=== PATIENT | female | born 1960 | race Caucasian/White ===

== ENCOUNTER 2019-05-08 14:32 | Outpatient (REF) | payer MEDICAID, SELFPAY ==
[2019-05-08 20:42] LABS: Abs Immature Grans 0.01 k/cumm (0.0-0.09); Absolute Basophil Count 0.03 k/cumm (0.0-0.2); Absolute Eosinophil Count 0.13 k/cumm (0.0-0.7); Absolute Lymphocyte Count 1.66 k/cumm (1.2-3.4); Absolute Monocyte Count 0.69 k/cumm (0.11-0.7); Absolute Neutrophil Count 3.67 k/cumm (1.2-6.7); Basophils % 0.5; Eosinophils % 2.1; HCT 39.9 % (36.0-46.0); HGB 13.2 g/dL (12.0-15.5); Immature Grans % 0.2; Lymphocytes % 26.8; Mean Corp. HGB Concentration 33.1 g/dL (32.0-36.0); Mean Corpuscular Hemoglobin 31.5 pg (27.0-33.0); Mean Corpuscular Volume 95.2 fL (80-95); Mean Platelet Volume 10.6 fL (8.0-11.0); Monocytes % 11.1; Neutrophils % 59.3; Platelet Count 230 x1000/uL (130-400); RBC 4.19 m/cumm (4.00-5.20); RBC Distribution Width 12.6 % (11.7-14.6); White Blood Cell Count 6.19 k/cumm (4.4-10.8)
[2019-05-08 20:51] LABS: ALT 21 U/L (12-78); AST 26 U/L (15-37); Albumin 4.1 g/dL (3.4-5.0); Alkaline Phosphatase 94 U/L (46-116); Anion Gap 8.6 mmol/L (3-11); BUN 9 mg/dL (7-18); Bilirubin, Total 0.4 mg/dL (0.2-1.0); CO2 30.4 mmol/L (21.0-32.0); CREATININE 0.67 mg/dL (0.55-1.02); Calcium 9.4 mg/dL (8.5-10.1); Chloride 103 mmol/L (98-107); Glucose 79 mg/dL (70-100); Potassium 4.3 mmol/L (3.5-5.1); Sodium 142 mmol/L (136-145)
[2019-05-09 09:25] LABS: NT-proBNP 200 pg/mL; TSH 3.37 uIU/mL (0.36-3.74)
== END 2019-05-08 14:52 ==
LOC: NCHCN 14:32
PROVIDERS: PCP Nurse Practitioner Family; Visit Provider Registered Nurse
DX: R06.02 Shortness of breath (principal); R53.83 Other fatigue; J44.9 Chronic obstructive pulmonary disease, unspecified; F41.8 Other specified anxiety disorders
CPT/HCPCS: 80053; 83880; 84443; 85025

== ENCOUNTER 2020-04-09 10:13 | Outpatient (REF) | payer MEDICAID, SELFPAY ==
[2020-04-09 21:02] LABS: Vitamin B12 1594 pg/mL (193-986)
[2020-04-11 19:35] LABS: ALT 39 U/L (14-59); AST 43 U/L (15-37); Albumin 4.4 g/dL (3.4-5.0); Alkaline Phosphatase 95 U/L (46-116); Anion Gap 9.3 mmol/L (3-11); BUN 14 mg/dL (7-18); Bilirubin, Total 0.2 mg/dL (0.2-1.0); CO2 28.7 mmol/L (21.0-32.0); CREATININE 0.65 mg/dL (0.55-1.02); Calcium 9.3 mg/dL (8.5-10.1); Chloride 101 mmol/L (98-107); Glucose 70 mg/dL (74-106); Sodium 139 mmol/L (136-145)
== END 2020-04-09 10:33 ==
LOC: NCHCN 10:13
PROVIDERS: PCP Nurse Practitioner Family; Visit Provider Nurse Practitioner Family
DX: F43.10 Post-traumatic stress disorder, unspecified (principal); F34.0 Cyclothymic disorder; F12.20 Cannabis dependence, uncomplicated; F15.20 Other stimulant dependence, uncomplicated; R45.4 Irritability and anger; Z51.81 Encounter for therapeutic drug level monitoring
CPT/HCPCS: 80053; 80178; 82607

== ENCOUNTER 2020-04-16 14:14 | Outpatient (REF) | payer MEDICAID, SELFPAY ==
[2020-04-16 20:38] LABS: Lithium 0.85 mmol/L (0.60-1.20)
== END 2020-04-16 14:34 ==
LOC: NCHCN 14:14
PROVIDERS: PCP Nurse Practitioner Family; Visit Provider Nurse Practitioner Family
DX: F34.0 Cyclothymic disorder (principal); R45.851 Suicidal ideations
CPT/HCPCS: 80178

== ENCOUNTER 2020-05-05 10:18 | Outpatient (REF) | payer MEDICAID, SELFPAY ==
[2020-05-05 20:41] LABS: Lithium 0.74 mmol/L (0.60-1.20)
== END 2020-05-05 10:38 ==
LOC: NCHCN 10:18
PROVIDERS: PCP Nurse Practitioner Family; Visit Provider Nurse Practitioner Family
DX: F43.10 Post-traumatic stress disorder, unspecified (principal); F41.8 Other specified anxiety disorders; Z51.81 Encounter for therapeutic drug level monitoring
CPT/HCPCS: 80178

== ENCOUNTER 2020-08-29 15:08 | Outpatient (REF) | payer MEDICAID, SELFPAY ==
[2020-09-02 08:18] LABS: COVID-19 RT-PCR UVMMC Result Positive (Negative)
== END 2020-08-29 15:28 ==
LOC: NCHCN 15:08
PROVIDERS: PCP Registered Nurse; Visit Provider Registered Nurse
DX: Z20.828 Contact with and (suspected) exposure to other viral communicable diseases (principal)
CPT/HCPCS: U0003

== ENCOUNTER 2021-01-23 15:04 | Outpatient (REF) | payer MEDICAID, SELFPAY ==
[2021-01-23 13:34] LABS: Abs Immature Grans 0.01 10^3/uL (0.0-0.06); Absolute Basophil Count 0.06 10^3/uL (0.0-0.2); Absolute Eosinophil Count 0.24 10^3/uL (0.0-0.7); Absolute Lymphocyte Count 1.81 10^3/uL (1.2-3.4); Absolute Monocyte Count 0.29 10^3/uL (0.1-0.8); Basophils % 1.1; Eosinophils % 4.4; HCT 40.3 % (36.0-46.0); HGB 12.9 g/dL (11.2-15.7); Immature Grans % 0.2; Lymphocytes % 33.5; MCH 31.7 pg (27.0-33.0); MPV 9.9 fL (8.0-11.0); Monocytes % 5.4; Neutrophils % 55.4; Nucleated RBC 0 %; Platelet Count 236 10^3/uL (130-400); RBC 4.07 10^6/uL (3.93-5.22); RDW 12.5 % (11.7-14.6); RDW-SD 45.3 fL; WBC 5.41 10^3/uL (4.4-10.8)
[2021-01-23 14:12] LABS: ALT 27 U/L (14-59); AST 31 U/L (15-37); Alkaline Phosphatase 69 U/L (46-116); Anion Gap 3.6 mmol/L (3-11); BUN 14 mg/dL (7-18); Bilirubin, Total 0.4 mg/dL (0.2-1.0); CO2 32.4 mmol/L (21.0-32.0); CREATININE 0.7 mg/dL (0.55-1.02); Calcium 9.1 mg/dL (8.5-10.1); Calculated LDL 79 mg/dL (<100); Chloride 106 mmol/L (98-107); Cholesterol 173 mg/dL (<200); Glucose 70 mg/dL (74-106); HDL Cholesterol 81 mg/dL (40-60); Potassium 4.1 mmol/L (3.5-5.1); Sodium 142 mmol/L (136-145); TSH (W/Ref FT4) 2.72 uIU/mL (0.36-3.74); Total Protein 6.4 g/dL (6.4-8.2); Triglyceride 67 mg/dL (<150); Vitamin B12 1539 pg/mL (193-986)
== END 2021-01-23 15:05 | disposition home or self-care (01) ==
LOC: NCHCN 15:04
PROVIDERS: PCP Registered Nurse; Visit Provider Nurse Practitioner Family
DX: F50.01 Anorexia nervosa, restricting type (principal); F34.0 Cyclothymic disorder; F43.12 Post-traumatic stress disorder, chronic; R63.4 Abnormal weight loss; Z51.81 Encounter for therapeutic drug level monitoring; Z79.899 Other long term (current) drug therapy
CPT/HCPCS: 80053; 80061; 80178; 82607; 84443; 85025

== ENCOUNTER 2021-05-28 14:49 | Outpatient (REF) | payer MEDICAID, SELFPAY ==
[2021-05-28 21:02] LABS: Lithium 0.6 mmol/l (0.6-1.2)
[2021-05-28 21:23] LABS: Albumin 4.2 g/dL (3.4-5.0); Anion Gap 6.8 mmol/L (3-11); BUN 18 mg/dL (7-18); CO2 29.2 mmol/L (21.0-32.0); CREATININE 0.6 mg/dL (0.55-1.02); Calcium 9.3 mg/dL (8.5-10.1); Chloride 104 mmol/L (98-107); FREE T4 0.78 ng/dL (0.76-1.46); Glucose 78 mg/dL (74-106); PHOSPHORUS 4.1 mg/dL (2.6-4.7); Potassium 4.1 mmol/L (3.5-5.1); Sodium 140 mmol/L (136-145); TSH 2.71 uIU/mL (0.36-3.74)
[2021-05-28 22:04] LABS: Vitamin B12 1761 pg/mL (193-986)
[2021-05-29 17:18] LABS: T3,Free 2.9 pg/mL (2.8-5.3)
== END 2021-05-28 14:50 | disposition home or self-care (01) ==
LOC: LBN 14:49
PROVIDERS: PCP Registered Nurse; Visit Provider Nurse Practitioner Family
DX: F34.0 Cyclothymic disorder (principal); R79.9 Abnormal finding of blood chemistry, unspecified; F10.21 Alcohol dependence, in remission; F15.99 Other stimulant use, unspecified with unspecified stimulant-induced disorder; Z79.899 Other long term (current) drug therapy
CPT/HCPCS: 80069; 80178; 82607; 84439; 84443; 84481

== ENCOUNTER 2021-07-09 20:39 | Outpatient (REF) | payer MEDICAID, SELFPAY ==
[2021-07-09 21:03] LABS: Abs Immature Grans 0.02 10^3/uL (0.0-0.06); Absolute Basophil Count 0.05 10^3/uL (0.0-0.2); Absolute Eosinophil Count 0.29 10^3/uL (0.0-0.7); Absolute Lymphocyte Count 2.09 10^3/uL (1.2-3.4); Absolute Monocyte Count 0.38 10^3/uL (0.1-0.8); Absolute Neutrophil Count 4.18 10^3/uL (1.2-6.7); Basophils % 0.7; Eosinophils % 4.1; HCT 37.1 % (36.0-46.0); HGB 11.7 g/dL (11.2-15.7); Immature Grans % 0.3; Lymphocytes % 29.8; MCH 31.9 pg (27.0-33.0); MCHC 31.5 % (32.0-36.0); MCV 101.1 fL (80-95); MPV 9.8 fL (8.0-11.0); Monocytes % 5.4; Neutrophils % 59.7; Nucleated RBC 0 %; Platelet Count 295 10^3/uL (130-400); RBC 3.67 10^6/uL (3.93-5.22); RDW 12.6 % (11.7-14.6); RDW-SD 47.4 fL; WBC 7.01 10^3/uL (4.4-10.8)
[2021-07-09 21:28] LABS: C-Reactive Protein < 0.05 mg/dL (0.0-0.3)
[2021-07-13 10:16] LABS: HIV-1/2 Ag & Ab Screen Negative (Negative)
== END 2021-07-09 20:40 | disposition home or self-care (01) ==
LOC: NCHCN 20:39
PROVIDERS: PCP Registered Nurse; Visit Provider Registered Nurse
DX: R61 Generalized hyperhidrosis (principal)
CPT/HCPCS: 87389; 85025; 86140

== ENCOUNTER 2021-08-27 17:13 | Outpatient (REF) | payer MEDICAID, SELFPAY ==
[2021-08-27 22:34] LABS: HCT 37.9 % (36.0-46.0); HGB 11.8 g/dL (11.2-15.7); MCH 31.1 pg (27.0-33.0); MCHC 31.1 % (32.0-36.0); MCV 99.7 fL (80-95); MPV 10.1 fL (8.0-11.0); Platelet Count 268 10^3/uL (130-400); WBC 6.01 10^3/uL (4.4-10.8)
== END 2021-08-27 17:14 | disposition home or self-care (01) ==
LOC: NCHCN 17:13
PROVIDERS: PCP Registered Nurse; Visit Provider Registered Nurse
DX: D64.9 Anemia, unspecified (principal)
CPT/HCPCS: 85027

== ENCOUNTER 2022-02-11 12:44 | Outpatient (REF) | payer MEDICAID, SELFPAY ==
[2022-02-11 15:22] LABS: Abs Immature Grans 0.01 10^3/uL (0.0-0.06); Absolute Basophil Count 0.07 10^3/uL (0.0-0.2); Absolute Eosinophil Count 0.31 10^3/uL (0.0-0.7); Absolute Lymphocyte Count 1.72 10^3/uL (1.2-3.4); Absolute Monocyte Count 0.39 10^3/uL (0.1-0.8); Eosinophils % 4.5; HCT 36.1 % (36.0-46.0); HGB 11.4 g/dL (11.2-15.7); Immature Grans % 0.1; Lymphocytes % 24.9; MCH 31.2 pg (27.0-33.0); MCHC 31.6 % (32.0-36.0); MCV 99 fL (80-95); MPV 10.2 fL (8.0-11.0); Monocytes % 5.7; Neutrophils % 63.8; Platelet Count 262 10^3/uL (130-400); RBC 3.65 10^6/uL (3.93-5.22); RDW-SD 46.8 fL
[2022-02-11 15:36] LABS: Albumin 4.1 g/dL (3.4-5.0); Anion Gap 5.2 mmol/L (3-11); BUN 12 mg/dL (7-18); CO2 28.8 mmol/L (21.0-32.0); CREATININE 0.6 mg/dL (0.55-1.02); Calcium 8.9 mg/dL (8.5-10.1); Chloride 105 mmol/L (98-107); FREE T4 0.72 ng/dL (0.76-1.46); Glucose 66 mg/dL (74-106); PHOSPHORUS 3.9 mg/dL (2.6-4.7); Potassium 3.5 mmol/L (3.5-5.1); Sodium 139 mmol/L (136-145); TSH 2.05 uIU/mL (0.36-3.74)
[2022-02-11 16:01] LABS: Lithium 0.6 mmol/l (0.6-1.2)
[2022-02-11 16:46] LABS: Vitamin B12 1689 pg/mL (193-986)
[2022-02-11 22:33] LABS: T3,Free 3.2 pg/mL (2.8-5.3)
== END 2022-02-11 12:45 | disposition home or self-care (01) ==
LOC: LBN 12:44
PROVIDERS: PCP Registered Nurse; Visit Provider Nurse Practitioner Family
DX: F34.0 Cyclothymic disorder (principal); F17.209 Nicotine dependence, unspecified, with unspecified nicotine-induced disorders; F43.12 Post-traumatic stress disorder, chronic; R45.4 Irritability and anger; R79.89 Other specified abnormal findings of blood chemistry; R71.8 Other abnormality of red blood cells; Z79.899 Other long term (current) drug therapy
CPT/HCPCS: 80069; 80178; 82607; 84439; 84443; 84481; 85025

== ENCOUNTER 2022-12-16 13:42 | Outpatient (REF) | payer MEDICAID, SELFPAY ==
[2022-12-16 15:28] LABS: Abs Immature Grans 0.01 10^3/uL (0.0-0.06); Absolute Basophil Count 0.06 10^3/uL (0.0-0.2); Absolute Eosinophil Count 0.22 10^3/uL (0.0-0.7); Absolute Lymphocyte Count 1.55 10^3/uL (1.2-3.4); Absolute Monocyte Count 0.36 10^3/uL (0.1-0.8); Absolute Neutrophil Count 1.99 10^3/uL (1.2-6.7); Basophils % 1.4; Eosinophils % 5.3; HCT 37.7 % (36.0-46.0); Immature Grans % 0.2; MCH 30.2 pg (27.0-33.0); MCHC 31.8 % (32.0-36.0); MCV 95 fL (80-95); MPV 10.3 fL (8.0-11.0); Monocytes % 8.6; Neutrophils % 47.5; Platelet Count 228 10^3/uL (130-400); RBC 3.97 10^6/uL (3.93-5.22); RDW 12.5 % (11.7-14.6); RDW-SD 43.7 fL; WBC 4.19 10^3/uL (4.4-10.8)
[2022-12-16 15:45] LABS: ALT 32 U/L (14-59); AST 42 U/L (15-37); Albumin 3.9 g/dL (3.4-5.0); Alkaline Phosphatase 78 U/L (46-116); Anion Gap 3.2 mmol/L (3-11); BUN 14 mg/dL (7-18); Bilirubin, Total 0.6 mg/dL (0.2-1.0); CO2 31.8 mmol/L (21.0-32.0); CREATININE 0.7 mg/dL (0.55-1.02); Calcium 9.2 mg/dL (8.5-10.1); Chloride 107 mmol/L (98-107); Estimated GFR 98.95 (mL/min/1.73m2); FREE T4 0.74 ng/dL (0.76-1.46); Glucose 84 mg/dL (74-106); Magnesium 2.1 mg/dL (1.8-2.4); PHOSPHORUS 4.2 mg/dL (2.6-4.7); Potassium 4.3 mmol/L (3.5-5.1); Sodium 142 mmol/L (136-145); TSH 2.59 uIU/mL (0.36-3.74); Total Protein 6.7 g/dL (6.4-8.2)
[2022-12-16 19:10] LABS: Vitamin B12 1883 pg/mL (193-986)
== END 2022-12-16 13:43 | disposition home or self-care (01) ==
LOC: LBN 13:42
PROVIDERS: PCP Registered Nurse; Visit Provider Nurse Practitioner Family
DX: F34.0 Cyclothymic disorder (principal); F43.12 Post-traumatic stress disorder, chronic; F17.299 Nicotine dependence, other tobacco product, with unspecified nicotine-induced disorders; R45.4 Irritability and anger; R53.83 Other fatigue; R53.81 Other malaise
CPT/HCPCS: 80053; 82607; 83735; 84100; 84439; 84443; 85025

== ENCOUNTER 2023-01-06 14:58 | Outpatient (REF) | payer MEDICAID, SELFPAY ==
[2023-01-06 14:40] LABS: ESR 3 mm/hr (0-30)
[2023-01-06 14:51] LABS: Lithium 0.4 mmol/l (0.6-1.2)
[2023-01-06 21:54] LABS: Rheumatoid Factor 12.4 IU/mL (<12.0)
[2023-01-07 09:11] LABS: Cyclic Citrullinated Peptide <2.5 U/mL (<5.0)
== END 2023-01-06 14:59 | disposition home or self-care (01) ==
LOC: NCHCN 14:58
PROVIDERS: PCP Registered Nurse; Visit Provider Registered Nurse
DX: M25.59 Pain in other specified joint (principal); F34.0 Cyclothymic disorder; F43.12 Post-traumatic stress disorder, chronic; F17.290 Nicotine dependence, other tobacco product, uncomplicated; R45.4 Irritability and anger; Z51.81 Encounter for therapeutic drug level monitoring; Z79.899 Other long term (current) drug therapy
CPT/HCPCS: 85652; 86200; 80178; 86431

== ENCOUNTER 2023-12-27 15:12 | Outpatient (REF) | payer MEDICAID, SELFPAY ==
[2023-12-27 20:51] LABS: Abs Immature Grans 0.04 10^3/uL (0.0-0.06); Absolute Basophil Count 0.06 10^3/uL (0.0-0.2); Absolute Eosinophil Count 0.13 10^3/uL (0.0-0.7); Absolute Lymphocyte Count 1.43 10^3/uL (1.2-3.4); Absolute Monocyte Count 0.45 10^3/uL (0.1-0.8); Absolute Neutrophil Count 3.08 10^3/uL (1.2-6.7); Basophils % 1.2; Eosinophils % 2.5; HCT 40.4 % (36.0-46.0); HGB 13.5 g/dL (11.2-15.7); Immature Grans % 0.8; Lymphocytes % 27.6; MCH 32.8 pg (27.0-33.0); MCHC 33.4 % (32.0-36.0); MCV 98 fL (80-95); Monocytes % 8.7; Neutrophils % 59.2; Platelet Count 227 10^3/uL (130-400); RBC 4.11 10^6/uL (3.93-5.22); RDW 12.3 % (11.7-14.6); RDW-SD 44.7 fL; WBC 5.19 10^3/uL (4.4-10.8)
[2023-12-27 21:08] LABS: ALT 27 U/L (14-59); AST 28 U/L (15-37); Albumin 3.3 g/dL (3.4-5.0); Alkaline Phosphatase 131 U/L (46-116); Anion Gap 9.9 mmol/L (3-11); BUN 11 mg/dL (7-18); Bilirubin, Total 0.2 mg/dL (0.2-1.0); CO2 28.1 mmol/L (21.0-32.0); CREATININE 0.6 mg/dL (0.55-1.02); Calcium 8.7 mg/dL (8.5-10.1); Chloride 106 mmol/L (98-107); Estimated GFR 102.06 (mL/min/1.73m2); Glucose 90 mg/dL (74-106); Lipase 35 U/L (16-77); Sodium 144 mmol/L (136-145); Total Protein 6.5 g/dL (6.4-8.2)
[2023-12-28 13:33] LABS: Folate 12.6 ng/mL (8.6-20.0); Vitamin B12 502 pg/mL (193-986)
== END 2023-12-27 15:13 | disposition home or self-care (01) ==
LOC: NCHCN 15:12
PROVIDERS: PCP Registered Nurse; Visit Provider Family Medicine
DX: D75.89 Other specified diseases of blood and blood-forming organs (principal); R11.10 Vomiting, unspecified; R74.8 Abnormal levels of other serum enzymes; Z79.899 Other long term (current) drug therapy
CPT/HCPCS: 80053; 83690; 82607; 82746; 85025

== ENCOUNTER 2024-03-13 16:00 | Outpatient (REF) | payer MEDICAID, SELFPAY ==
[2024-03-13 15:58] LABS: Abs Immature Grans 0.01 10^3/uL (0.0-0.06); Absolute Basophil Count 0.03 10^3/uL (0.0-0.2); Absolute Eosinophil Count 0.09 10^3/uL (0.0-0.7); Absolute Lymphocyte Count 1.08 10^3/uL (1.2-3.4); Absolute Monocyte Count 0.43 10^3/uL (0.1-0.8); Absolute Neutrophil Count 1.95 10^3/uL (1.2-6.7); Basophils % 0.8 %; Eosinophils % 2.5 %; HCT 40.5 % (36.0-46.0); HGB 13.2 g/dL (11.2-15.7); Immature Grans % 0.3 %; Lymphocytes % 30.1 %; MCH 33.4 pg (27.0-33.0); MCHC 32.6 % (32.0-36.0); MCV 103 fL (80-95); MPV 10.3 fL (8.0-11.0); Neutrophils % 54.3 %; Platelet Count 210 10^3/uL (130-400); RBC 3.95 10^6/uL (3.93-5.22); RDW 13.1 % (11.7-14.6); RDW-SD 49.9 fL; WBC 3.59 10^3/uL (4.4-10.8)
[2024-03-13 16:19] LABS: ALT 27 U/L (14-59); AST 34 U/L (15-37); Albumin 3.7 g/dL (3.4-5.0); Alkaline Phosphatase 72 U/L (46-116); Anion Gap 6.9 mmol/L (3-11); BUN 14 mg/dL (7-18); Bilirubin, Total 0.3 mg/dL (0.2-1.0); CO2 29.1 mmol/L (21.0-32.0); CREATININE 0.6 mg/dL (0.55-1.02); Calcium 8.8 mg/dL (8.5-10.1); Chloride 106 mmol/L (98-107); Estimated GFR 102.06 (mL/min/1.73m2); FREE T4 0.71 ng/dL (0.76-1.46); Glucose 81 mg/dL (74-106); Magnesium 1.9 mg/dL (1.8-2.4); PHOSPHORUS 4.4 mg/dL (2.6-4.7); Potassium 3.8 mmol/L (3.5-5.1); Sodium 142 mmol/L (136-145); TSH 1.38 uIU/Ml (0.36-3.74); Total Protein 6.4 g/dL (6.4-8.2)
[2024-03-13 17:06] LABS: Vitamin B12 1309 pg/mL (193-986)
== END 2024-03-13 16:01 | disposition home or self-care (01) ==
LOC: LBN 16:00
PROVIDERS: Nurse Practitioner Family; PCP Registered Nurse; Visit Provider Family Medicine
DX: F34.0 Cyclothymic disorder (principal); F10.120 Alcohol abuse with intoxication, uncomplicated; F43.12 Post-traumatic stress disorder, chronic; Z79.899 Other long term (current) drug therapy
CPT/HCPCS: 80053; 82607; 83735; 84100; 84439; 84443; 85025

== ENCOUNTER 2024-05-01 19:03 | Outpatient (REF) | payer MEDICAID, SELFPAY ==
[2024-05-01 21:37] LABS: Abs Immature Grans 0.02 10^3/uL (0.0-0.06); Absolute Basophil Count 0.06 10^3/uL (0.0-0.2); Absolute Eosinophil Count 0.18 10^3/uL (0.0-0.7); Absolute Monocyte Count 0.49 10^3/uL (0.1-0.8); Absolute Neutrophil Count 5.58 10^3/uL (1.2-6.7); Basophils % 0.7 %; Eosinophils % 2.2 %; HCT 41.4 % (36.0-46.0); HGB 13.8 g/dL (11.2-15.7); Immature Grans % 0.2 %; Lymphocytes % 21.2 %; MCH 32.8 pg (27.0-33.0); MCHC 33.3 % (32.0-36.0); MCV 98 fL (80-95); MPV 10.2 fL (8.0-11.0); Monocytes % 6.1 %; Neutrophils % 69.6 %; Platelet Count 207 10^3/uL (130-400); RBC 4.21 10^6/uL (3.93-5.22); RDW 13.4 % (11.7-14.6); RDW-SD 48.1 fL; WBC 8.03 10^3/uL (4.4-10.8)
[2024-05-01 22:05] LABS: ALT 29 U/L (14-59); AST 43 U/L (15-37); Albumin 3.9 g/dL (3.4-5.0); Alkaline Phosphatase 140 U/L (46-116); Anion Gap 6.7 mmol/L (3-11); BUN 12 mg/dL (7-18); Bilirubin, Total 0.24 mg/dL (0.2-1.0); CO2 30.3 mmol/L (21.0-32.0); CREATININE 0.7 mg/dL (0.55-1.02); Calcium 9.1 mg/dL (8.5-10.1); Chloride 103 mmol/L (98-107); Estimated GFR 98.34 (mL/min/1.73m2); Glucose 98 mg/dL (74-106); Sodium 140 mmol/L (136-145); Total Protein 6.8 g/dL (6.4-8.2)
== END 2024-05-01 19:04 | disposition home or self-care (01) ==
LOC: NCHCN 19:03
PROVIDERS: PCP Registered Nurse; Visit Provider Family Medicine
DX: D75.89 Other specified diseases of blood and blood-forming organs (principal); R79.89 Other specified abnormal findings of blood chemistry; Z01.818 Encounter for other preprocedural examination
CPT/HCPCS: 80053; 85025

== ENCOUNTER 2025-01-23 10:30 | Outpatient (REF) | payer MEDICAID, SELFPAY ==
[2025-01-23 16:32] LABS: ALT 49 U/L (14-59); AST 69 U/L (15-37); Albumin 3.5 g/dL (3.4-5.0); Alkaline Phosphatase 132 U/L (46-116); Anion Gap 8.6 mmol/L (3-11); BUN 16 mg/dL (7-18); Bilirubin, Total 0.4 mg/dL (0.2-1.0); CO2 28.4 mmol/L (21.0-32.0); CREATININE 0.7 mg/dL (0.55-1.02); Calcium 8.8 mg/dL (8.5-10.1); Chloride 104 mmol/L (98-107); Estimated GFR 97.72 (mL/min/1.73m2); Glucose 69 mg/dL (74-106); Potassium 3.9 mmol/L (3.5-5.1); Sodium 141 mmol/L (136-145); Total Protein 6.5 g/dL (6.4-8.2)
== END 2025-01-23 10:31 | disposition home or self-care (01) ==
LOC: NCHCN 10:30
PROVIDERS: PCP Registered Nurse; Visit Provider Family Medicine
DX: F10.10 Alcohol abuse, uncomplicated (principal)
CPT/HCPCS: 80053

== ENCOUNTER 2025-01-28 12:56 | Outpatient (REF) | payer MEDICAID, SELFPAY ==
[2025-01-28 15:13] LABS: ALT 38 U/L (14-59); AST 46 U/L (15-37); Albumin 3.7 g/dL (3.4-5.0); Alkaline Phosphatase 114 U/L (46-116); Bilirubin, Direct 0.1 mg/dL (0.0-0.2); Bilirubin, Total 0.3 mg/dL (0.2-1.0); Total Protein 6.6 g/dL (6.4-8.2)
== END 2025-01-28 12:57 | disposition home or self-care (01) ==
LOC: NCHCN 12:56
PROVIDERS: PCP Registered Nurse; Visit Provider Family Medicine
DX: F10.10 Alcohol abuse, uncomplicated (principal)
CPT/HCPCS: 80076

== ENCOUNTER 2025-03-14 11:48 | Outpatient (REF) | payer MEDICAID, SELFPAY | END 2025-03-14 11:49 | disposition home or self-care (01) | LOC: NCHCN 11:48 | PROVIDERS: PCP Registered Nurse; Visit Provider Family Medicine | DX: R35.0 Frequency of micturition (principal); R82.89 Other abnormal findings on cytological and histological examination of urine | CPT/HCPCS: 87086 ==

== ENCOUNTER 2025-04-29 16:02 | Outpatient (REF) | payer MEDICAID, SELFPAY ==
[2025-04-29 16:23] LABS: ALT 21 U/L (14-59); AST 31 U/L (15-37); Albumin 4.2 g/dL (3.4-5.0); Alkaline Phosphatase 80 U/L (46-116); Anion Gap 5.6 mmol/L (3-11); BUN 10 mg/dL (7-18); Bilirubin, Total 0.6 mg/dL (0.2-1.0); CO2 31.4 mmol/L (21.0-32.0); Calcium 9.2 mg/dL (8.5-10.1); Chloride 105 mmol/L (98-107); Estimated GFR 97.72 (mL/min/1.73m2); Glucose 93 mg/dL (74-106); Potassium 3.5 mmol/L (3.5-5.1); Sodium 142 mmol/L (136-145); Total Protein 6.8 g/dL (6.4-8.2)
== END 2025-04-29 16:03 | disposition home or self-care (01) ==
LOC: NCHCN 16:02
PROVIDERS: PCP Registered Nurse; Visit Provider Family Medicine
DX: R74.8 Abnormal levels of other serum enzymes (principal)
CPT/HCPCS: 80053